=== PATIENT | male | born 1980 | race Caucasian/White ===

== ENCOUNTER → 2017-08-02 | Outpatient (CLI) | payer OTHER ==
[2017-08-02 16:08] LABS: HEMOGLOBIN 15.7 g/dl (14.0-18.0); MEAN CELL VOLUME 91.5 fl (80.0-94.0); MEAN CORPUSCULAR HGB 31.2 pg (27.0-31.0); MEAN CORPUSCULAR HGB CONC 34.1 g/dl (33.0-37.0); MEAN PLATELET VOLUME 9.5 fl (9.6-12.3); RED BLOOD COUNT 5.03 10*6/uL (4.50-5.90); RED CELL DISTRI WIDTH 11.9 % (0-14.5); WHITE BLOOD COUNT 9.4 10*3/uL (4.8-10.8)
[2017-08-02 16:36] LABS: ALBUMIN 3.9 gm/dl (3.1-4.5); ALKALINE PHOSPHATASE 86 U/L (45-117); BUN 12 mg/dl (7-24); CHLORIDE 104 mmol/L (98-107); CHOLESTEROL 132 mg/dL (<200); CREATININE 0.87 mg/dL (0.70-1.30); HDL CHOLESTEROL 42 mg/dl (40-60); LDL CHOLESTEROL 44 mg/dL (9-159); POTASSIUM 3.7 mmol/L (3.5-5.1); SGOT/AST 12 IU/L (3-35); SGPT/ALT 30 U/L (12-78); SODIUM 141 mmol/L (136-145); TOTAL PROTEIN 7.2 gm/dL (6.4-8.2); TRIGLYCERIDES 228 mg/dl (<150); VLDL CHOLESTEROL 46 mg/dL (6-40)
[2017-08-02 16:37] LABS: CEA 1.7 ng/mL
[2017-08-03 09:05] LABS: CANCER ANTIGEN (CA) 125 002303 5.9 U/mL (Not Estab.)
== END | disposition home or self-care (01) ==
LOC: LAB 15:44
PROVIDERS: Family Medicine
DX: E78.00 Pure hypercholesterolemia, unspecified (principal); E55.9 Vitamin D deficiency, unspecified; M54.9 Dorsalgia, unspecified; G43.909 Migraine, unspecified, not intractable, without status migrainosus; C62.90 Malignant neoplasm of unspecified testis, unspecified whether descended or undescended